=== PATIENT | female | born 1980 | race Caucasian/White ===

== ENCOUNTER 2017-08-05 18:25 | Emergency (ER) | payer MEDICAID ==
[2017-08-05 21:07] VITALS: BP 113/93
== END 2017-08-05 21:07 | disposition home or self-care (01) ==
LOC: ED 18:25
DX: R07.89 Other chest pain (principal)
CPT/HCPCS: J1885

== ENCOUNTER 2017-09-15 17:58 | Emergency (ER) | payer MEDICAID ==
[~2017-09-15] VITALS: Ht 162.6 cm; Wt 86.2 kg
[2017-09-15 18:21] VITALS: Ht 162.6 cm; Wt 86.2 kg
[2017-09-15 19:28] VITALS: BP 124/80
== END 2017-09-15 19:28 | disposition home or self-care (01) ==
LOC: ED 17:58
DX: B34.9 Viral infection, unspecified (principal); R19.7 Diarrhea, unspecified; E03.0 Congenital hypothyroidism with diffuse goiter

== ENCOUNTER 2018-10-04 13:20 | Emergency (ER) | payer MEDICAID ==
[~2018-10-04] VITALS: Ht 167.6 cm; Wt 87.5 kg
[2018-10-04 14:01] VITALS: Ht 167.6 cm; Wt 87.5 kg
[2018-10-04 16:52] VITALS: BP 132/88
== END 2018-10-04 16:52 | disposition home or self-care (01) ==
LOC: ED 13:20
DX: N10 Acute pyelonephritis (principal); R19.7 Diarrhea, unspecified
CPT/HCPCS: J0696